=== PATIENT | male | born 1975 | race Caucasian/White ===

== ENCOUNTER 2018-03-18 06:52 | Outpatient (RCR) | payer OTHER, SELFPAY ==
--- NOTE | 2018-03-18 12:13 | HP.FCE ---
HP OT Functional Capacity Eval - Task Lift Floor (Occasional 1-33% of Day): 65 lbs Floor (Frequent 34-66% of Day): 33 lbs Floor (Constant 67-100% of Day): 13 lbs Floor PDL: Medium Knee (Occasional 1-33% of Day): 65 lbs Knee (Frequent 34-66% of Day): 33 lbs Knee (Constant 67-100% of Day): 13 lbs Knee PDL: Medium Waist (Occasional 1-33% of Day): 65 lbs Waist (Frequent 34-66% of Day): 33 lbs Waist (Constant 67-100% of Day): 13 lbs Waist PDL: Medium Shoulder (Occasional 1-33% of Day): 65 lbs Shoulder (Frequent 34-66% of Day): 33 lbs Shoulder (Constant 67-100% of Day): 13 lbs Shoulder PDL: Medium Overhead (Occasional 1-33% of Day): 65 lbs Overhead (Frequent 34-66% of Day): 33 lbs Overhead (Constant 67-100% of Day): 13 lbs Overhead PDL: Medium Comments: Fair body mechanics noted. Some increased throacic flexion from bending to standing. Pain appeared minamal and rated minimal at this time. Able to complete all asked task of FCE as well as indicated on job description sheet from potential employer. Performance classified him at 'Medium' category for work tasks. - Work Activity/Posture Bending: Frequent Ability (34-66% of day) Comments: 34-45% Squatting: Frequent Ability (34-66% of day) Kneeling: Frequent Ability (34-66% of day) Comments: 34-40%; needed external support to move to upright position. Reaching out: Frequent Ability (34-66% of day) Reaching up: Frequent Ability (34-66% of day) Sitting: Frequent Ability (34-66% of day) Walking: Frequent Ability (34-66% of day) Standing: Frequent Ability (34-66% of day) - Reference Duration Sedentary Sedentary Light Light Light Medium Medium Medium Heavy Very Heavy Heavy Occasional (0-33% of day) Frequent (34-66% of day) Constant (67-100% of day) 10 # Negligible Negligible 15 # 8 # Negligible 20 # 10# Negli. 35 # 18 # 7 # 50 # 25 # 10 # 75 # 100 # >100 # 38 # 50 # >50 # 15 # 20 # >20 # - Patient Information Height: 1.8 m Weight:: 239 kg Hand Dominance: L - Medical History Medical History Including Restrictions: No medical restrictions from medical doctor. Notes last reistriction was no running more than mile week due to knee problems June last year. - Diagnoses Diagnoses: PMHx: 2x low back surgeries: 1x fusion L1-s1 (2007) follow by decompression (2008), 2x shoulder surgeries on R shoulder surgeries to complete arthoscropy and then tendon laceration surgery per Pt. report, h/o OA. Pain manage for LB for spinal injections of April of last year. Able to quit after 3 injection due to pain relief. Has also recieve steroid injections bilateral knees. Last one May last year. - Symptoms Symptoms: Pt. main symptom is pain with certain activities. Notes that simply reaching for son can put back out and often it is hard to determine what will or won't cause back to go out. Notes that sitting and resting typically helps and he is able to then manage pain. Notes that he rarely gets numbness and tingling and when it comes he associates to back problems as it is often related to times of pain. He notes that at times waking up he is stiff and sore but pain will typically dissipates throughout the day. - Pain Pain: Pt. notes pain sitting there is about 0/10. Weightshifted as needed while sitting. Notes that during repetitive movement screening pain increased in low back and L thigh to 2/10. Later notes it decreased. Had some variable pain in B knees when complete squats and some lifitng tasks. Pain in B knees ranged from 0-3/10. Pain manageable at this time. Some decreased body mechanics noted. Overall, fair body mechanics at this time. Pt. educated at end of session to be aware of body mchanics to promote low back and joint integrity. Very receptive notes will adjuist. - Work History Work History: Pt. served 24 years in [employer]. 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 Notes he travels and has been stations in multiple locations in . He works that he would [employer] in [employer] as long as approved and will be working in [employer] type deal. - Behavioral Behavioral: Danielito was very receptive and coopertaive for FCE. Pleasant and completed takss to best of ability. Movtivated to be able to go back to work and appears to be excited about potential opportunity in [address]. - ADLS ADLS: Pt. notes that he is living with family since retiring from [facility] in October. Curently residing in house. He notes 2 steps to get in front door, 8 to upstairs and 8 to downsatirs. Bathroom on both first and second floors. Notes he is completing all ADls (i). Notes at times will help cook meals and is able to stand during that time. Notes he is able to complete laundry in basement. Notes mainly has to carry it up. He notes he is still driving. And helps care fro 1x dog. Notes his and him share chores and help care for 2x kids : daughter 8 y/o, and son 4 y/o. - Physical Examination Physical Examination: Pt., Danielito, arrived for FCE on this date. Current rehabiliation clinic is undergoing construction at this time. He tolerated noise well and no issues with completing tasks with loud or excessive noises at this time. Danielito was pleasant and cooperative for all tasks. He is motivated to return to work since retiring in [facility] [employer] [employer]. ROM and Strength are WNL. Some increased pain with bending and squatting with increased symptoms R knee and L leg due to back. Pain was minimal and ernesto to 2/10. He was able to take very short standing break to manage pain before continuing tasks. He did well with tasks and based on performance can complete work falling into Medium category. He noris form and has meant all requirement based on form in todays performance. Push tasks completed and completed with 25-30 lbs of weight on cart. Can complete at 'frequently' performance level at this time. Further comments and observations of performance can be seen above & below. ROM: Pt. BUE ROM is WNL and and B LUE WFL. No pain noted with movements. Strength: Pt. strength: B UE: delotid: R 4+/5, L 4+/5. bicep: R 4+/5, L 4+/5. tricep: R 4+/5, L 4+/5. wrist ext: R 4+/5, L 4+/5. B LUE: hip flexors: R 5/5, L 5/5. hamstrings: R 5/5, L 5/5. quadraceps: R 5/5, L 5/5. dorsiflexion: R 5/5, L 5/5 Right Recovery Coordinator Strength Average: 104.33 Right Recovery Coordinator Strength Percentile: 30th Left Recovery Coordinator Strength Average: 105.00 Left Recovery Coordinator Strength Percentile: 46th Right Lateral Pinch Average: 23.66 Right Lateral Pinch Percentile: 75th Left Lateral Pinch Average: 22.33 Left Lateral Pinch Percentile: 75th Right Tripod Pinch Average: 24.66 Right Tripod Pinch Percentile: 90th Left Tripod Pinch Average: 22.66 Left Tripod Pinch Percentile: above 75th but below 90th Sensation: Denies numbness and tingling at this time. At times notes numbness and tingling throughout B LE. Fine Motor: FMC is intact and WNL.He is L hand dominant Completed 9 hole pegboard test for finger dexterity and FMC observation and evalution. Performance is as follows: L 19.92 s; above 90th percentile. R 20.01 s; approximately 75th percentile Balance: Balance is Good and WNL. - Non Material Handling Activities Bendinx, 10x, short standing break pain increased 2/10, 10x fast. Completed with fair body mechanics at this time. Some increased thoracic flexion and hip flexion approximately 90 degrees. Able to complete WFL. Some increased pain noted after set. Short standing break initiated and helped pain to calm. Squattinx, 10x, short standing break, 10 fast. Fair body mechanics. Pain in knees to 3/10. Some increased trunk extension noted, KLEVER good, and ROM WFL. Kneelinx, 10x,. Assist of external support to move from kneel to upright. Increased pain in R knee at 3/10. Fair body mechanics for trunk in upright posture. Increased anterior trunk lean to maintain balance. Reaching out/up: From standing position: Reaching out: 3x, 10x, 10x fast. Reaching up: 3x, 10x, 10x fast. Completed with good body mechanics. No pain noted at this time. Walkin mins. Completed 15 mins of consistent functional mobility around facility. No external support need. Completed WNL. Clinic is both rehab gym as well as gym open to public. It currently is undergoing construction at this time. Completed ambulation around facility with increased noise and visual stimualtion without trouble. Could have completed additional laps. As per Pt. report on Functional Activities Questionnaire he notes he can usually walk about 2 hours before needing seated break. Standing: Completed standing directly after 15 mins of [facility] facility. Started lifitng tasks without seated break, and then moved to completing static and dynmaic standing at table top. Able to tolerated all standing for about 40 mins. Could have potentially stood longer. According to Functional Activities Questionnaire Pt. noted he can stand for 2-6 hours. Pt. noted no pain with task. Sittin mins. Completed 40 mins of sitting with weight shift as needed. Could have sat longer. Completed WNL. According to Pt. answer of Functional Activities Questionnaire is noted he can sit for 10 hours daily. Further noted on questionnaire sitting is most comfortable position. Climbing Stairs: Able to ascend and decend 10 stairs with alternating foot pattern and no use of handrails. No LOB noted. He completed WNL. - Dynamic Occasional Lifting Capacity Floor Lift: 65 lbs. Completed with fair body mechanics. Pt. exhibit good wide KLEVER, and lifting close to body. Notes some increased throacic flexion with lift causing decreased spinal alignment. No increased in pain noted. Indicative of Pt. being able to complete Medium Work. Knee Lift: 65 lbs. Completed with fair body mechanics. Pt. exhibit good wide KLEVER, and lifting close to body. Notes some increased throacic flexion with lift causing decreased spinal alignment. Once in standing, some increased shoulder elevation noted. Completed WFL. Performance place Danielito in Medium work category. Waist Lift: 65 lbs. Completed with fair body mechanics. Completed with some increased throacic flexion otherwise body mechanics were good. No increased in pain noted. Performance indicative of medium work category. Shoulder Lift: 65 lbs. Completed fair body mechanics. Completed slight increased throacic flexion at start and then moving to increased trunk extension for placing klever which increased pressure on low back. Additionaly some increased shoulder elevation noted to manipulate box to placement. Completed WFL. No increase in pain noted. Performance indicative of medium work category. Overhead Lift: 65 lbs. Completed fair body mechanics. Completed slight increased throacic flexion at start and then moving to increased trunk extension for placing klever which increased pressure on low back. Additionally some increased shoulder elevation noted to manipulate box to placement. Completed WFL. No increase in pain noted. Performance indicative of medium work category. Carryin lbs. Completed with fair body mechanics. Completed with some slight trunk extension to place box on pelvis. Appears to potentially be compensation for shoulders. No increase dpain noted. Performance indicated medium work category. Comments: Pt. completed tasks well and body mechanics were fair. However, did readdress body mechanics at end of session just for further potetection of low back. Noted had learned previous but needed refresher. Able to tolerate all tasks. Pain did not increased over a 3/10 which was in B knees and not back. He is still completing most tasks around house, including yardwork. Notes he no longer exercises regularly but is active in helping care for kids and home. Motivated to return to work.
--- NOTE | 2018-03-18 12:13 | HP.OTFCE.D ---
FCE D/C Summary - Discharge KLEVER GUTIERREZ was seen for a one time visit for an FCE on 03/18/18 and is discharged.
== END 2018-03-18 19:00 | disposition home or self-care (01) ==
LOC: OT 06:52
PROVIDERS: Visit Provider Clinical Nurse Specialist
DX: Z02.1 Encounter for pre-employment examination (principal)
CPT/HCPCS: 97750